=== PATIENT | male | born 1970 ===

== ENCOUNTER 2023-08-09 14:49 | Outpatient (OUT) | payer OTHER, SELFPAY ==
--- NOTE | 2023-08-09 | XR_ITS ---
The [address] [address] Patient Name: ZEUS KELLER MRN: [id number] date: 1970 Sex: M Assigned Patient Location: RAD Current Patient Location: [facility] Accession/Order Number: [id number] Exam Date: 08/09/2023 15:09 Report Date: 08/09/2023 15:53 At the request of: NOAH DIAZ Procedure: XR ankle LT min 3V EXAM: XR ankle LT min 3V HISTORY: LEFT ANKLE PAIN COMPARISON: None. TECHNIQUE: 3 views of the left ankle were obtained. FINDINGS: There is no evidence of an acute fracture or dislocation. Remote bony fragments are seen at the tip of the medial and lateral malleoli. The mortise is intact and no osteochondral injury is identified. The subtalar joints are intact. No significant soft tissue swelling is identified. XR/XR ankle LT min 3V IMPRESSION: No acute fracture or dislocation. Small remote bony fragments are seen at the tip of the medial and lateral malleoli. The joint spaces are intact. Comparison with a previous study may be helpful in confirming the chronicity of these findings. Electronically authenticated by: NOAH BARTHOLOMEW Date: 08/09/2023 15:53
--- NOTE | 2023-08-09 | XR_ITS ---
The [address] [address] Patient Name: ZEUS KELLER MRN: [id number] date: 1970 Sex: M Assigned Patient Location: RAD Current Patient Location: RAD Accession/Order Number: [id number] Exam Date: 08/09/2023 15:09 Report Date: 08/09/2023 15:56 At the request of: NOAH DIAZ Procedure: XR foot LT min 3V EXAM: XR foot LT min 3V HISTORY: LEFT FOOT PAIN for the past year. COMPARISON: None. TECHNIQUE: 3 views of left foot were obtained FINDINGS: There is no evidence of an acute fracture or dislocation. There is a remote fracture with deformity seen involving the mid to distal aspect of the fifth metatarsal bone. There is mild narrowing of the first metatarsophalangeal joint with a very mild bunion deformity. The remainder the joint spaces are intact. A tiny osteophyte arises from the plantar aspect of the calcaneus. XR/XR foot LT min 3V IMPRESSION: No acute fracture or dislocation. An old fracture involving the fifth metatarsal bone is noted. Direct comparison with a previous study may be helpful in determining the chronicity of these findings. Electronically authenticated by: NOAH BARTHOLOMEW Date: 08/09/2023 15:56
== END 2023-08-09 14:50 | disposition home or self-care (01) ==
LOC: RAD 14:51
PROVIDERS: Visit Provider Podiatrist Foot & Ankle Surgery
DX: M79.672 Pain in left foot (principal); M25.572 Pain in left ankle and joints of left foot
CPT/HCPCS: 73610; 73630